=== PATIENT | female | born 1980 | race Caucasian/White ===

== ENCOUNTER 2017-08-10 07:25 | Emergency (ER) | payer SELFPAY ==
[~2017-08-10] VITALS: Ht 157.5 cm; Wt 63.1 kg
[2017-08-10 07:32] VITALS: TEMP 98.3
[2017-08-10 09:09] LABS: BASO % 0.1 % (0.0-2.0); EOS # 0.1 (0.0-0.7); EOS % 1.1 % (0-4.0); GRAN # 8.3 (1.4-6.5); GRAN % 84.9 % (42.2-75.2); HEMATOCRIT 40.3 % (37.0-47.0); HEMOGLOBIN 13.6 g/dl (12.5-16.0); LYMPH # 0.8 (1.2-3.4); LYMPH % 8.1 % (20.0-51.0); MEAN CELL VOLUME 89 fl (80.0-100.0); MEAN CORPUSCULAR HEMOGLOBIN 30 pg (27.0-31.0); MEAN CORPUSCULAR HGB CONC 34 g/dl (33.0-37.0); MEAN PLATELET VOLUME 10.5 fl (7.4-10.4); MONO # 0.6 (0.1-0.6); MONO % 5.6 % (1.7-9.3); PLATELET COUNT 246 K/mm3 (130-400); RED BLOOD COUNT 4.52 M/mm3 (4.10-5.30); REDCELL DISTRIBUTION WIDTH-CV 13.1 % (11.5-14.5)
[2017-08-10 09:39] LABS: ALBUMIN 4.1 gm/dL (3.5-5.0); BILIRUBIN,TOTAL 0.5 mg/dL (0.0-1.0); CALCIUM 8.5 mg/dL (8.4-10.2); CREATININE, serum 0.55 mg/dL (0.52-1.25); POTASSIUM 3.9 mmol/L (3.4-5.0); TOTAL PROTEIN 8.1 gm/dL (6.4-8.2)
[2017-08-10 09:40] LABS: C-REACTIVE PROTEIN 2.6 mg/dL (0.0-0.9)
[2017-08-10 10:13] LABS: COLLECTION METHOD CLEAN CATCH
[2017-08-10 10:22] LABS: MUCOUS Present /lpf; PH 5 (5-8); URINE APPEARANCE Hazy; URINE BACTERIA None Seen /hpf; URINE BILIRUBIN Negative (NEGATIVE); URINE BLOOD 3+ (NEGATIVE); URINE COLOR Amber; URINE GLUCOSE Negative (NEGATIVE); URINE KETONE Negative (NEGATIVE); URINE LEUKOCYTE ESTERASE Trace (NEGATIVE); URINE NITRATE Negative (NEGATIVE); URINE PROTEIN(semi-quant) 1+ (NEGATIVE); URINE RBC >50 /hpf; URINE UROBILINOGEN Negative (NEGATIVE)
[2017-08-10] MEDS ORDERED: NORCO 325 MG-51 TAB PO (11:26)
[2017-08-10] MEDS ORDERED: OMNICEF 300MG300 MG PO (11:26)
[2017-08-10] MEDS ORDERED: ZOFRAN ODT4 MG PO (11:26)
[2017-08-10 11:43] VITALS: BP 100/64; PULSE 81
== END 2017-08-10 11:49 | disposition home or self-care (01) ==
LOC: COL.ER 07:25
PROVIDERS: Emergency Medicine; Physician Assistant
DX: N20.2 Calculus of kidney with calculus of ureter (principal); N39.0 Urinary tract infection, site not specified; Z98.890 Other specified postprocedural states
CPT/HCPCS: J0696; J1170; J1885; J2405; J7030